=== PATIENT | male | born 2000 | race Caucasian/White ===

== ENCOUNTER 2024-03-16 11:14 | Emergency (ER) | payer BC, SELFPAY ==
[2024-03-16 11:19] VITALS: BP 125/68
[2024-03-16] MEDS: MOTRIN 600 MG PO (12:48)
[2024-03-16] MEDS: LIDOCAINE 4% PATCH 1 PATCH TOPICAL (12:48)
--- NOTE | 2024-03-16 13:02 | ED.GENMED ---
History of Present Illness
General
Chief Complaint: Back Pain
Time Seen by Provider: 03/16/24 12:35
History of Present Illness
History of Present Illness:
Patient is a 23-year-old man who is otherwise healthy presenting to the emergency department back pain. He lifted something heavy at work when he immediately had left lower back pain. Does radiate to the top of his [place]. Does not radiate down
his legs. No numbness tingling. No urinary incontinence or retention. No fevers or chills. No history of IV drug use or spinal injections. He has not tried any medications prior to arrival. He is here at the request of his work.
Phy Exam
Physical Exam
Physical Exam:
GENERAL: in no acute distress
HEENT: normocephalic, extraocular movements intact, moist oral mucosa
NECK: normal inspection
RESPIRATORY: no respiratory distress, clear to auscultation bilaterally
CARDIOVASCULAR: regular rate and rhythm
ABDOMEN/: soft, non-distended, non-tender to palpation, no rebound or guarding
EXTREMITIES: non-tender, no edema/swelling
Back: No midline spinal tenderness. Left lower paraspinal tenderness
NEUROLOGIC: alert and oriented x 3, cranial nerves II-XII intact, right upper extremity strength 5/5, left upper extremity strength 5/5, right lower extremity strength 5/5, left lower extremity strength 5/5, normal sensation to light touch, normal
ipidar-[id number]-mvvc and smdb-ps-[id number], gait not tested formally
SKIN: warm
Course
Orders/Labs/Results
Orders:
Orders
03/16/24 12:43
Ibuprofen [Motrin] 600 mg PO NOW STA
03/16/24 12:45
Lidocaine [Lidocaine 4% Patch] 1 patch TOPICAL DAILY
Apply Lidocaine patch(s) to:: lower back
Vital Signs
Initial and Last Documented VS:
Initial Vital Signs
Temp Pulse Resp BP Pulse Ox
98.1 F 65 18 125/68 97
03/16/24 11:19 03/16/24 11:19 03/16/24 11:19 03/16/24 11:19 03/16/24 11:19
Last Documented Vital Signs
Temp Pulse Resp BP Pulse Ox
98.1 F 65 18 125/68 97
03/16/24 11:19 03/16/24 11:19 03/16/24 11:19 03/16/24 11:19 03/16/24 11:19
MDM/Problems Addressed
Differential Diagnosis Includes:
23-year-old male who is otherwise healthy presenting to the emergency department lower back pain after lifting something heavy. Vitals unremarkable and exam is reassuring. He does not have any red flags to suggest cauda equina osteomyelitis
discitis or abscess. No midline tenderness to suggest compression fracture. Low concern for renal etiology or aortic catastrophe given history and exam. At this time will give pain medication such as ibuprofen and lidocaine patch. Consider
obtaining x-ray however will hold off as the pain is acute. Will give patient follow-up with primary care doctor. He will follow up with physical therapy and early exercises to help with the pain.
*Critical Care Note
Total Time (30-74mins, 75-104mins- exclusive of procedures): Not Applicable
ED Attending Note
-
Portions of this chart may have been created with voice recognition software.� Occasional wrong word or��sound alike� substitutions may have occurred due to the inherent limitations of voice recognition software.
Discharge Plan
Departure
Patient Disposition: Home (Routine Discharge)
Date of Disposition: 03/16/24
Time of Disposition: 13:01
Patient with high blood pressure during this ER visit?: No
Discharge Problem:
Back pain
Instructions: Low Back Pain (DC)
Referrals:
NONE,* [Family Provider] -
Activity Restrictions/Additional Instructions:
Your back pain is likely musculoskeletal/mechanical low back pain that usually improves with conservative treatment after a few weeks.
You can take ibuprofen 400 mg (2 xyfn-zqt-chaekrg tablets) every 4 hours or 600 mg (3 tsdd-lnx-pfwfbtc tablets) every 6 hours as needed for pain. Take the lowest effective dose -- the 600 mg dose has an anti-inflammatory effect, but evidence
suggests that this dose may not get you better pain control over a 400 mg dose.
You can take Tylenol 1000 mg (3 regular strength tablets or 2 extra strength tablets) every 6 hours as needed for pain up to 3 doses per day.
Wean yourself off of the ibuprofen as soon as your pain is tolerable. This medication, if used long-term, can have negative effects on the kidneys, heart and stomach. Tylenol is the safest medication but does not have the anti-inflammatory component.
Apply a heating pad 15-20 minutes at a time every few hours. Make sure not to sleep with the heating pad on as it can burn your skin. You may also try ice every few hours -- make sure not to apply an icepack directly to the skin. You can alternate
the two as well.
You can apply a lidocaine patch to the painful area every 8 hours as well.
Return to the emergency department if you develop inability to urinate, are unable to hold your stool, have numbness when your wipe yourself after using the bathroom, develop new weakness in the legs, develop a fever, if you have worsening pain or
if you have any increasing concerns.
If your pain is not improving over the next 1-2 weeks, please follow-up with your primary care doctor.
Interventions
Interventions:
*Risk Screen - Suicide Last Done: 03/16/24 11:19
*General Assessment Last Done: 03/16/24 11:19
*Neglect/Abuse Screening Last Done: 03/16/24 11:19
ED- Fall Risk Assessment Last Done: 03/16/24 12:40
*ED COVID-19 Vaccine History Last Done: 03/16/24 11:19
ED-Musculoskeletal Assessment Last Done: 03/16/24 12:39
Discharge Date and Time
Print Language: CZECH
[2024-03-16 13:18] VITALS: BP 121/78
== END 2024-03-16 13:20 | disposition home or self-care (01) ==
LOC: EMR 11:14
PROVIDERS: EMERGENCY PHYSICIAN Student in an Organized Health Care Education/Training Program
DX: M54.50 Low back pain, unspecified (principal); X50.0XXA Overexertion from strenuous movement or load, initial encounter
CPT/HCPCS: 99282